=== PATIENT | male | born 1950 | race Caucasian/White ===

== ENCOUNTER → 2016-11-09 | Outpatient (CLI) | payer BC, MEDICARE ==
[~2016-11-09] MED LIST: ALBI30PE IM; ALBI30PE SC; ASPI-496 PO; ASPI-515 PO; ASPI-621 PO; ASPI325T4 PO; CLOP75TA PO; CLOP75TA22 PO; FENO145T32 PO; FURO-92 PO; FURO20TA3 PO; FURO40TA6 PO; GABA100C8 PO; GLIM1TAB PO; GLIP5TAB10 PO; INSU100I28 SQ-INSULIN; INSULIN; IPRA4AER INH; ISOS30TA19 PO; LEVO500T33 PO; LISI-170 PO; LISI40TA PO; LISI5TAB7 PO; MAGN400T7 PO; METF10002 PO; METO-93 PO; METO25TA35 PO; METO25TA91 PO; METO50TA82 PO; NITR0.4T SL; PANT40TA3 PO; PANT40TA5 PO; POTA10TA11 PO; POTA20TA14 PO; POTA20TA91 PO; SIMV40TA3 PO; SITA50TA PO; SPIR25TA PO; SPIR25TA3 PO; TEMA15CA6 PO
== END | disposition home or self-care (01) ==
LOC: CFH 14:18
PROVIDERS: ATTEND Nurse Practitioner
DX: I65.23 Occlusion and stenosis of bilateral carotid arteries (principal); Z95.1 Presence of aortocoronary bypass graft
CPT/HCPCS: 93880

== ENCOUNTER 2017-08-11 02:31 | Inpatient (IN) | payer BC, MEDICARE ==
[~2017-08-11] VITALS: Ht 172.7 cm; Wt 83.5 kg
[~2017-08-11 02:31] MED LIST changes: +ASPI325T17 PO; -ASPI325T4 PO; -CLOP75TA22 PO; +CLOP75TA52 PO; +GABA-826 PO; -GABA100C8 PO; -ISOS30TA19 PO; +ISOS30TA21 PO; -LEVO500T33 PO; +LEVO500T47 PO
[2017-08-11] MEDS ORDERED: methylPREDNISolone SOD SUCC 125 MG/2 ML ONE (03:27)
[2017-08-11] MEDS ORDERED: SODIUM CHLORIDE 0.9% 1,000ML IVBOLUS ONE (03:30)
[2017-08-11] MEDS ORDERED: ALBUTEROL SULFATE 2.5 MG/3 ML NPPB ONE (03:30)
[2017-08-11] MEDS ORDERED: methylPREDNISolone SOD SUCC 125 MG/2 ML IVP ONE (03:30)
[2017-08-11] MEDS ORDERED: ALBUTEROL/IPRATROPIUM 2.5MG/0.5MG, 3 ML ONE (03:45)
[2017-08-11 03:53] LABS: BASOPHILS # (AUTO) 0.02 x10^3/uL (0-0.1); BASOPHILS % (AUTO) 0 % (0-1); EOSINOPHILS # (AUTO) 0.07 x10^3/uL (0-0.4); EOSINOPHILS % (AUTO) 1 % (1-7); LYMPHOCYTES # (AUTO) 0.31 x10^3/uL (1-3.4); LYMPHOCYTES % (AUTO) 5 % (22-44); MD NO; MEAN CORPUSCULAR HEMOGLOBIN 28.4 pg (27.5-34.5); MEAN CORPUSCULAR HGB CONC 33.5 g/dL (33.2-36.2); MEAN CORPUSCULAR VOLUME 84.9 fL (81-97); MEAN PLATELET VOLUME 8.1 fL (7.4-10.4); MONOCYTES # (AUTO) 0.65 x10^3/uL (0.2-0.8); MONOCYTES % (AUTO) 10 % (2-9); NEUTROPHILS # (AUTO) 5.57 x10^3/uL (1.8-6.8); NEUTROPHILS % (AUTO) 84 % (42-75); PLATELET COUNT 188 x10^3/uL (130-400); RED BLOOD COUNT 4.88 x10^6/uL (4.38-5.82); RED CELL DISTRIBUTION WIDTH 14.9 % (9.4-14.8)
[2017-08-11 03:59] LABS: RAPID INFLUENZA A POSITIVE (Negative); RAPID INFLUENZA B Negative (Negative)
[2017-08-11 04:05] LABS: ALBUMIN 3.2 g/dL (3.4-5.0); ANION GAP 7 mmol/L (5-15); CALCIUM 8.2 mg/dL (8.5-10.1); CHLORIDE 108 mmol/L (98-107); CREATININE 1.31 mg/dL (0.7-1.3)
[2017-08-11] MEDS ORDERED: SODIUM CHLORIDE 0.9% 1,000 ML IV ONE (04:39)
[2017-08-11] MEDS ORDERED: ONDANSETRON 2MG/ML, 2ML ONE (04:44)
[2017-08-11] MEDS ORDERED: ASPIRIN 325 MG TABLET ONE (04:44)
[2017-08-11] MEDS ORDERED: ONDANSETRON 2MG/ML, 2ML IVPush PRN ×2 (05:00→08:30)
[2017-08-11] MEDS ORDERED: ASPIRIN 325 MG TABLET PO ONE (05:00)
[2017-08-11 05:34] LABS: TROPONIN I 0.599 ng/mL (0.000-0.045)
[2017-08-11 06:44] VITALS: BP 151/74
[2017-08-11] MEDS ORDERED: ALBUTEROL SULFATE 2.5 MG/3 ML NPPB PRN (08:30)
[2017-08-11] MEDS ORDERED: GLIMEPIRIDE 1 MG TABLET PO SCH (08:30)
[2017-08-11] MEDS ORDERED: hydrALAzine 20 MG/ML, 1ML IVPush PRN (08:30)
[2017-08-11] MEDS ORDERED: DOCUSATE 100 MG CAPSULE PO PRN (09:00)
[2017-08-11] MEDS ORDERED: FUROSEMIDE 40 MG TABLET PO SCH (09:00)
[2017-08-11] MEDS ORDERED: HEPARIN 5,000 UNITS/ML, 1ML IV ONE (09:00)
[2017-08-11] MEDS ORDERED: INSULIN DETEMIR 100 UNITS/ML, PEN SQ-INSULIN SCH (09:00)
[2017-08-11 09:15] VITALS: BP 119/69
[2017-08-11] MEDS: ALBUTEROL/IPRATROPIUM 2.5MG/0.5MG, 3 ML NPPB SCH ×3 (09:48→19:16)
[2017-08-11 10:04] LABS: TROPONIN I 0.908 ng/mL (0.000-0.045)
[2017-08-11] MEDS: ASPIRIN 81 MG TABLET EC PO SCH (10:12)
[2017-08-11] MEDS: MAGNESIUM OXIDE 400 MG TABLET PO SCH ×2 (10:12→21:17)
[2017-08-11] MEDS: METOPROLOL SUCCINATE 50 MG TAB.ER.24H PO SCH (10:12)
[2017-08-11] MEDS: OSELTAMIVIR 75 MG CAPSULE PO SCH ×2 (10:12→21:16)
[2017-08-11] MEDS: CLOPIDOGREL 75 MG TABLET PO SCH (10:13)
[2017-08-11] MEDS: LISINOPRIL 5 MG TABLET PO SCH ×2 (10:13→21:17)
[2017-08-11] MEDS: FENOFIBRATE 145 MG TABLET PO SCH (10:13)
[2017-08-11] MEDS: INSULIN ASPART 100 UNITS/ML, PEN SQ-INSULIN SCH ×3 (10:26→21:20)
[2017-08-11] MEDS: HEPARIN 25,000 UNITS/500ML PMX 500 ML IV PRN (10:29)
[2017-08-11] MEDS: ISOSORBIDE DINITRATE 30 MG TABLET PO SCH (12:02)
[2017-08-11 15:00] VITALS: BP 129/78
[2017-08-11] MEDS: AZITHROMYCIN 500 MG TABLET PO SCH (16:38)
[2017-08-11 16:42] LABS: HEMOGLOBIN A1C 7.9 % (4.2-6.3)
[2017-08-11] MEDS ORDERED: FUROSEMIDE 40 MG/4 ML IV SCH (17:00)
[2017-08-11] MEDS: HEPARIN 5,000 UNITS/ML, 1ML IV PRN (17:16)
[2017-08-11] MEDS ORDERED: ATORVASTATIN 40 MG TABLET PO SCH (18:00)
[2017-08-11 20:00] VITALS: BP 122/55
[2017-08-11] MEDS: TEMAZEPAM 15 MG CAPSULE PO PRN (21:17)
[2017-08-11] MEDS: INSULIN DETEMIR 100 UNITS/ML, PEN SQ-INSULIN SCH (21:19)
[2017-08-12 02:23] VITALS: BP 102/62
[2017-08-12] MEDS: METOPROLOL SUCCINATE 50 MG TAB.ER.24H PO SCH (06:29)
[2017-08-12 06:54] LABS: BASOPHILS % (AUTO) 0 % (0-1); EOSINOPHILS % (AUTO) 0 % (1-7); LYMPHOCYTES # (AUTO) 0.27 x10^3/uL (1-3.4); LYMPHOCYTES % (AUTO) 3 % (22-44); MD NO; MEAN CORPUSCULAR HEMOGLOBIN 27.8 pg (27.5-34.5); MEAN CORPUSCULAR HGB CONC 32.6 g/dL (33.2-36.2); MEAN CORPUSCULAR VOLUME 85.2 fL (81-97); MEAN PLATELET VOLUME 8.8 fL (7.4-10.4); MONOCYTES # (AUTO) 0.79 x10^3/uL (0.2-0.8); MONOCYTES % (AUTO) 9 % (2-9); NEUTROPHILS # (AUTO) 7.65 x10^3/uL (1.8-6.8); NEUTROPHILS % (AUTO) 88 % (42-75); PLATELET COUNT 195 x10^3/uL (130-400); RED BLOOD COUNT 4.72 x10^6/uL (4.38-5.82)
[2017-08-12 06:55] LABS: ANION GAP 7 mmol/L (5-15); CALCIUM 8.6 mg/dL (8.5-10.1); CHLORIDE 106 mmol/L (98-107); CHOLESTEROL, TOTAL 148 mg/dL (140-239); CREATININE 1.68 mg/dL (0.7-1.3); TRIGLYCERIDES 113 mg/dL (50-200); VLDL CHOLESTEROL 23 mg/dL (0-25)
[2017-08-12 06:57] LABS: CHOL/HDL RATIO 3.3; HDL CHOL % 30 % (26-37); HDL CHOLESTEROL (DIRECT) 45 mg/dL (40-60); LDL CHOLESTEROL,CALCULATED 80 mg/dL (54-169); LDL/HDL RATIO 1.8 (0.5-3.0)
[2017-08-12] MEDS: ALBUTEROL/IPRATROPIUM 2.5MG/0.5MG, 3 ML NPPB SCH ×4 (07:35→19:07)
[2017-08-12] MEDS: INSULIN DETEMIR 100 UNITS/ML, PEN SQ-INSULIN SCH ×2 (08:35→21:57)
[2017-08-12] MEDS: ACETAMINOPHEN 325 MG TABLET PO PRN (08:35)
[2017-08-12] MEDS: INSULIN ASPART 100 UNITS/ML, PEN SQ-INSULIN SCH ×4 (08:35→21:57)
[2017-08-12] MEDS: CLOPIDOGREL 75 MG TABLET PO SCH (08:36)
[2017-08-12] MEDS: AZITHROMYCIN 500 MG TABLET PO SCH (08:36)
[2017-08-12] MEDS: MAGNESIUM OXIDE 400 MG TABLET PO SCH ×2 (08:36→21:49)
[2017-08-12] MEDS: FENOFIBRATE 145 MG TABLET PO SCH (08:36)
[2017-08-12] MEDS: LISINOPRIL 5 MG TABLET PO SCH ×2 (08:36→21:49)
[2017-08-12] MEDS: ISOSORBIDE DINITRATE 30 MG TABLET PO SCH (08:36)
[2017-08-12] MEDS: ASPIRIN 81 MG TABLET EC PO SCH (08:36)
[2017-08-12 08:37] VITALS: BP 113/74
[2017-08-12] MEDS: OSELTAMIVIR 75 MG CAPSULE PO SCH ×2 (08:37→21:50)
[2017-08-12] MEDS: HEPARIN 25,000 UNITS/500ML PMX 500 ML IV PRN (11:34)
[2017-08-12 14:00] VITALS: BP 114/71
[2017-08-12] MEDS: FUROSEMIDE 20 MG/2 ML IV SCH (16:10)
[2017-08-12 20:43] VITALS: BP 119/58
[2017-08-12] MEDS: ATORVASTATIN 20 MG TABLET PO SCH (21:49)
[2017-08-13 01:56] VITALS: BP 106/55
[2017-08-13 05:22] LABS: BASOPHILS # (AUTO) 0.01 x10^3/uL (0-0.1); BASOPHILS % (AUTO) 0 % (0-1); EOSINOPHILS # (AUTO) 0.03 x10^3/uL (0-0.4); EOSINOPHILS % (AUTO) 0 % (1-7); LYMPHOCYTES % (AUTO) 6 % (22-44); MD NO; MEAN CORPUSCULAR HEMOGLOBIN 28.3 pg (27.5-34.5); MEAN CORPUSCULAR HGB CONC 33.3 g/dL (33.2-36.2); MEAN PLATELET VOLUME 8.7 fL (7.4-10.4); MONOCYTES # (AUTO) 0.56 x10^3/uL (0.2-0.8); MONOCYTES % (AUTO) 7 % (2-9); NEUTROPHILS # (AUTO) 7.35 x10^3/uL (1.8-6.8); NEUTROPHILS % (AUTO) 87 % (42-75); PLATELET COUNT 177 x10^3/uL (130-400); RED BLOOD COUNT 4.37 x10^6/uL (4.38-5.82)
[2017-08-13 05:29] LABS: ANION GAP 5 mmol/L (5-15); CALCIUM 8.5 mg/dL (8.5-10.1); CHLORIDE 105 mmol/L (98-107)
[2017-08-13 05:30] LABS: CREATININE 1.45 mg/dL (0.7-1.3)
[2017-08-13 05:52] LABS: TROPONIN I 0.742 ng/mL (0.000-0.045)
[2017-08-13] MEDS: METOPROLOL SUCCINATE 50 MG TAB.ER.24H PO SCH (06:32)
[2017-08-13] MEDS: HEPARIN 5,000 UNITS/ML, 1ML IV PRN (06:34)
[2017-08-13] MEDS: ALBUTEROL/IPRATROPIUM 2.5MG/0.5MG, 3 ML NPPB SCH ×4 (06:52→20:00)
[2017-08-13] MEDS: INSULIN ASPART 100 UNITS/ML, PEN SQ-INSULIN SCH ×4 (07:00→19:45)
[2017-08-13 07:33] VITALS: BP 136/72
[2017-08-13] MEDS ORDERED: POTASSIUM CHLORIDE 20 MEQ TAB.ER.PRT ONE (07:58)
[2017-08-13] MEDS ORDERED: ENOXAPARIN 30 MG/0.3 ML SQ SCH (08:00)
[2017-08-13] MEDS ORDERED: POTASSIUM CHLORIDE 20 MEQ TAB.ER.PRT PO ONE (08:00)
[2017-08-13] MEDS: OSELTAMIVIR 75 MG CAPSULE PO SCH ×2 (08:01→19:38)
[2017-08-13] MEDS: FUROSEMIDE 20 MG/2 ML IV SCH (08:01)
[2017-08-13] MEDS: AZITHROMYCIN 500 MG TABLET PO SCH (08:01)
[2017-08-13] MEDS: FENOFIBRATE 145 MG TABLET PO SCH (08:01)
[2017-08-13] MEDS: ACETAMINOPHEN 325 MG TABLET PO PRN ×3 (08:01→23:22)
[2017-08-13] MEDS: CLOPIDOGREL 75 MG TABLET PO SCH (08:01)
[2017-08-13] MEDS: LISINOPRIL 5 MG TABLET PO SCH ×2 (08:01→19:38)
[2017-08-13] MEDS: ASPIRIN 81 MG TABLET EC PO SCH (08:02)
[2017-08-13] MEDS: INSULIN DETEMIR 100 UNITS/ML, PEN SQ-INSULIN SCH ×2 (08:02→19:45)
[2017-08-13] MEDS: ISOSORBIDE DINITRATE 30 MG TABLET PO SCH (08:02)
[2017-08-13] MEDS: MAGNESIUM OXIDE 400 MG TABLET PO SCH ×2 (08:02→19:38)
[2017-08-13] MEDS: GLIMEPIRIDE 1 MG TABLET PO SCH (08:02)
[2017-08-13 14:15] VITALS: BP 121/65
[2017-08-13] MEDS: FUROSEMIDE 20 MG TABLET PO SCH (16:40)
[2017-08-13] MEDS: ATORVASTATIN 20 MG TABLET PO SCH (19:38)
[2017-08-13 20:23] VITALS: BP 123/91
[2017-08-13] MEDS: GUAIFENESIN/DM 200-20MG, 10ML UDC PO PRN (23:29)
[2017-08-13] MEDS: TEMAZEPAM 15 MG CAPSULE PO PRN (23:29)
[2017-08-14 01:45] VITALS: BP 112/67
[2017-08-14 04:50] LABS: BASOPHILS # (AUTO) 0.01 x10^3/uL (0-0.1); BASOPHILS % (AUTO) 0 % (0-1); EOSINOPHILS % (AUTO) 1 % (1-7); LYMPHOCYTES % (AUTO) 8 % (22-44); MD NO; MEAN CORPUSCULAR HEMOGLOBIN 28.5 pg (27.5-34.5); MEAN CORPUSCULAR HGB CONC 33.2 g/dL (33.2-36.2); MEAN CORPUSCULAR VOLUME 85.8 fL (81-97); MEAN PLATELET VOLUME 8.6 fL (7.4-10.4); MONOCYTES # (AUTO) 0.78 x10^3/uL (0.2-0.8); MONOCYTES % (AUTO) 10 % (2-9); NEUTROPHILS # (AUTO) 6.23 x10^3/uL (1.8-6.8); NEUTROPHILS % (AUTO) 81 % (42-75); PLATELET COUNT 189 x10^3/uL (130-400); RED BLOOD COUNT 4.44 x10^6/uL (4.38-5.82); RED CELL DISTRIBUTION WIDTH 14.9 % (9.4-14.8)
[2017-08-14 05:00] LABS: CHLORIDE 107 mmol/L (98-107)
[2017-08-14 05:09] LABS: ANION GAP 5 mmol/L (5-15); CALCIUM 8.7 mg/dL (8.5-10.1); CREATININE 1.45 mg/dL (0.7-1.3)
[2017-08-14] MEDS: METOPROLOL SUCCINATE 50 MG TAB.ER.24H PO SCH (06:13)
[2017-08-14 06:43] VITALS: BP 111/72
[2017-08-14] MEDS: INSULIN ASPART 100 UNITS/ML, PEN SQ-INSULIN SCH ×4 (07:00→21:41)
[2017-08-14] MEDS: ALBUTEROL/IPRATROPIUM 2.5MG/0.5MG, 3 ML NPPB SCH ×4 (07:32→18:56)
[2017-08-14] MEDS: FUROSEMIDE 20 MG TABLET PO SCH ×2 (08:36→17:19)
[2017-08-14] MEDS: GLIMEPIRIDE 1 MG TABLET PO SCH (08:36)
[2017-08-14] MEDS: ENOXAPARIN 40 MG/0.4 ML SQ SCH (08:36)
[2017-08-14] MEDS: CLOPIDOGREL 75 MG TABLET PO SCH (08:37)
[2017-08-14] MEDS: LISINOPRIL 5 MG TABLET PO SCH ×2 (08:37→21:32)
[2017-08-14] MEDS: MAGNESIUM OXIDE 400 MG TABLET PO SCH ×2 (08:37→21:32)
[2017-08-14] MEDS: ISOSORBIDE DINITRATE 30 MG TABLET PO SCH (08:37)
[2017-08-14] MEDS: OSELTAMIVIR 75 MG CAPSULE PO SCH ×2 (08:37→21:32)
[2017-08-14] MEDS: FENOFIBRATE 145 MG TABLET PO SCH (08:37)
[2017-08-14] MEDS: ASPIRIN 81 MG TABLET EC PO SCH (08:37)
[2017-08-14] MEDS: INSULIN DETEMIR 100 UNITS/ML, PEN SQ-INSULIN SCH ×2 (08:38→21:47)
[2017-08-14] MEDS: ACETAMINOPHEN 325 MG TABLET PO PRN ×2 (12:29→21:31)
[2017-08-14] MEDS: GUAIFENESIN/DM 200-20MG, 10ML UDC PO PRN ×2 (12:29→21:31)
[2017-08-14 14:32] VITALS: BP 108/65
[2017-08-14 21:28] VITALS: BP 146/73
[2017-08-14] MEDS: ATORVASTATIN 20 MG TABLET PO SCH (21:31)
[2017-08-14] MEDS: AZITHROMYCIN 500 MG TABLET PO SCH ×2 (21:33→21:50)
[2017-08-15 00:33] VITALS: BP 120/69
[2017-08-15] MEDS: TEMAZEPAM 15 MG CAPSULE PO PRN (02:13)
[2017-08-15] MEDS: METOPROLOL SUCCINATE 50 MG TAB.ER.24H PO SCH (05:15)
[2017-08-15 06:39] VITALS: BP 127/75
[2017-08-15] MEDS: ALBUTEROL/IPRATROPIUM 2.5MG/0.5MG, 3 ML NPPB SCH ×4 (06:59→20:30)
[2017-08-15] MEDS: INSULIN ASPART 100 UNITS/ML, PEN SQ-INSULIN SCH ×4 (07:00→21:03)
[2017-08-15] MEDS: ACETAMINOPHEN 325 MG TABLET PO PRN ×2 (08:02→20:50)
[2017-08-15] MEDS: ISOSORBIDE DINITRATE 30 MG TABLET PO SCH (09:00)
[2017-08-15] MEDS: GLIMEPIRIDE 1 MG TABLET PO SCH (09:30)
[2017-08-15] MEDS: MAGNESIUM OXIDE 400 MG TABLET PO SCH ×2 (09:30→20:51)
[2017-08-15] MEDS: LISINOPRIL 5 MG TABLET PO SCH ×2 (09:31→20:51)
[2017-08-15] MEDS: ENOXAPARIN 40 MG/0.4 ML SQ SCH (09:31)
[2017-08-15] MEDS: FUROSEMIDE 20 MG TABLET PO SCH ×2 (09:31→16:38)
[2017-08-15] MEDS: OSELTAMIVIR 75 MG CAPSULE PO SCH ×2 (09:31→20:51)
[2017-08-15] MEDS: FENOFIBRATE 145 MG TABLET PO SCH (09:31)
[2017-08-15] MEDS: ASPIRIN 81 MG TABLET EC PO SCH (09:31)
[2017-08-15] MEDS: CLOPIDOGREL 75 MG TABLET PO SCH (09:31)
[2017-08-15] MEDS: INSULIN DETEMIR 100 UNITS/ML, PEN SQ-INSULIN SCH (09:32)
[2017-08-15 13:53] VITALS: BP 121/97
[2017-08-15] MEDS: ATORVASTATIN 20 MG TABLET PO SCH (20:51)
[2017-08-15] MEDS: AZITHROMYCIN 500 MG TABLET PO SCH (20:51)
[2017-08-15 20:55] VITALS: BP 123/60
[2017-08-15] MEDS: GUAIFENESIN/DM 200-20MG, 10ML UDC PO PRN (21:03)
[2017-08-16 02:10] VITALS: BP 101/62
[2017-08-16 06:18] LABS: CHLORIDE 106 mmol/L (98-107)
[2017-08-16] MEDS: ALBUTEROL/IPRATROPIUM 2.5MG/0.5MG, 3 ML NPPB SCH ×4 (06:31→18:54)
[2017-08-16 06:32] LABS: ANION GAP 7 mmol/L (5-15); CALCIUM 9.2 mg/dL (8.5-10.1); CREATININE 1.29 mg/dL (0.7-1.3)
[2017-08-16 06:52] VITALS: BP 104/62
[2017-08-16] MEDS: INSULIN ASPART 100 UNITS/ML, PEN SQ-INSULIN SCH ×4 (07:00→21:29)
[2017-08-16] MEDS: INSULIN DETEMIR 100 UNITS/ML, PEN SQ-INSULIN SCH (07:30)
[2017-08-16] MEDS: FUROSEMIDE 20 MG TABLET PO SCH ×2 (07:48→17:15)
[2017-08-16] MEDS ORDERED: REGADENOSON 0.4 MG/5 ML SYRINGE ONE (10:54)
[2017-08-16] MEDS: ASPIRIN 81 MG TABLET EC PO SCH (12:14)
[2017-08-16] MEDS: LISINOPRIL 5 MG TABLET PO SCH ×2 (12:14→21:18)
[2017-08-16] MEDS: MAGNESIUM OXIDE 400 MG TABLET PO SCH ×2 (12:14→21:18)
[2017-08-16] MEDS: FENOFIBRATE 145 MG TABLET PO SCH (12:14)
[2017-08-16] MEDS: GLIMEPIRIDE 1 MG TABLET PO SCH (12:14)
[2017-08-16] MEDS: ISOSORBIDE DINITRATE 30 MG TABLET PO SCH (12:14)
[2017-08-16] MEDS: CLOPIDOGREL 75 MG TABLET PO SCH (12:15)
[2017-08-16] MEDS: METOPROLOL SUCCINATE 50 MG TAB.ER.24H PO SCH (12:15)
[2017-08-16] MEDS: OSELTAMIVIR 75 MG CAPSULE PO SCH (12:15)
[2017-08-16] MEDS: ENOXAPARIN 40 MG/0.4 ML SQ SCH (12:16)
[2017-08-16] MEDS: ACETAMINOPHEN 325 MG TABLET PO PRN ×2 (13:48→21:18)
[2017-08-16 14:43] VITALS: BP 114/66
[2017-08-16 19:08] VITALS: BP 114/64
[2017-08-16] MEDS: GUAIFENESIN/DM 200-20MG, 10ML UDC PO PRN (21:18)
[2017-08-16] MEDS: ATORVASTATIN 20 MG TABLET PO SCH (21:18)
[2017-08-17 00:03] VITALS: BP 110/68
[2017-08-17] MEDS: TEMAZEPAM 15 MG CAPSULE PO PRN (00:23)
[2017-08-17] MEDS: METOPROLOL SUCCINATE 50 MG TAB.ER.24H PO SCH (06:35)
[2017-08-17] MEDS: INSULIN ASPART 100 UNITS/ML, PEN SQ-INSULIN SCH ×4 (07:00→21:00)
[2017-08-17] MEDS: INSULIN DETEMIR 100 UNITS/ML, PEN SQ-INSULIN SCH (07:30)
[2017-08-17] MEDS: ENOXAPARIN 40 MG/0.4 ML SQ SCH (08:00)
[2017-08-17] MEDS: ALBUTEROL/IPRATROPIUM 2.5MG/0.5MG, 3 ML NPPB SCH ×4 (08:10→19:01)
[2017-08-17 08:28] VITALS: BP 119/75
[2017-08-17] MEDS: LISINOPRIL 5 MG TABLET PO SCH ×2 (08:31→20:40)
[2017-08-17] MEDS: ASPIRIN 81 MG TABLET EC PO SCH (08:31)
[2017-08-17] MEDS: MAGNESIUM OXIDE 400 MG TABLET PO SCH ×2 (08:32→20:40)
[2017-08-17] MEDS: GLIMEPIRIDE 1 MG TABLET PO SCH (08:32)
[2017-08-17] MEDS: ISOSORBIDE DINITRATE 30 MG TABLET PO SCH (08:32)
[2017-08-17] MEDS: FUROSEMIDE 20 MG TABLET PO SCH ×2 (08:33→17:51)
[2017-08-17] MEDS: FENOFIBRATE 145 MG TABLET PO SCH (08:33)
[2017-08-17] MEDS ORDERED: SODIUM CHLORIDE 0.9% 500 ML IV SCH (09:30)
[2017-08-17 09:46] LABS: BASOPHILS # (AUTO) 0.01 x10^3/uL (0-0.1); BASOPHILS % (AUTO) 0 % (0-1); EOSINOPHILS # (AUTO) 0.12 x10^3/uL (0-0.4); EOSINOPHILS % (AUTO) 2 % (1-7); LYMPHOCYTES # (AUTO) 0.68 x10^3/uL (1-3.4); LYMPHOCYTES % (AUTO) 8 % (22-44); MD NO; MEAN CORPUSCULAR HEMOGLOBIN 28.3 pg (27.5-34.5); MEAN CORPUSCULAR HGB CONC 32.9 g/dL (33.2-36.2); MEAN PLATELET VOLUME 8.9 fL (7.4-10.4); MONOCYTES % (AUTO) 7 % (2-9); NEUTROPHILS # (AUTO) 6.91 x10^3/uL (1.8-6.8); NEUTROPHILS % (AUTO) 83 % (42-75); PLATELET COUNT 264 x10^3/uL (130-400); RED BLOOD COUNT 4.68 x10^6/uL (4.38-5.82); RED CELL DISTRIBUTION WIDTH 14.5 % (9.4-14.8)
[2017-08-17 09:52] LABS: INTERNATIONAL NORMALIZED RATIO 0.99 (0.93-1.1); PROTHROMBIN TIME 10.3 Seconds (9.6-11.5)
[2017-08-17] MEDS: CLOPIDOGREL 75 MG TABLET PO SCH (14:13)
[2017-08-17] MEDS ORDERED: BIVALIRUDIN 250 MG ONE (14:17)
[2017-08-17] MEDS ORDERED: FENTANYL PF 100 MCG/2ML ONE (14:17)
[2017-08-17] MEDS ORDERED: MIDAZOLAM 1 MG/ML, 5ML ONE (14:17)
[2017-08-17] MEDS ORDERED: TICAGRELOR 90 MG TABLET ONE (14:17)
[2017-08-17] MEDS ORDERED: VERAPAMIL 2.5 MG/ML, 2ML ONE (14:17)
[2017-08-17] MEDS ORDERED: LIDOCAINE 2%, 20ML ONE (14:17)
[2017-08-17] MEDS ORDERED: HEPARIN 1,000 UNITS/ML, 10ML ONE (14:18)
[2017-08-17] MEDS ORDERED: SODIUM CHLORIDE 0.9% 1,000 ML IV SCH (15:07)
[2017-08-17 18:42] VITALS: BP 115/67
[2017-08-17] MEDS: ATORVASTATIN 20 MG TABLET PO SCH (20:40)
[2017-08-17] MEDS: GUAIFENESIN/DM 200-20MG, 10ML UDC PO PRN (21:00)
[2017-08-17] MEDS: ACETAMINOPHEN 325 MG TABLET PO PRN (21:00)
[2017-08-18 00:26] VITALS: BP 103/62
[2017-08-18] MEDS: ACETAMINOPHEN 325 MG TABLET PO PRN (01:43)
[2017-08-18] MEDS: METOPROLOL SUCCINATE 50 MG TAB.ER.24H PO SCH (05:57)
[2017-08-18] MEDS: ALBUTEROL/IPRATROPIUM 2.5MG/0.5MG, 3 ML NPPB SCH ×3 (06:54→14:05)
[2017-08-18] MEDS: INSULIN ASPART 100 UNITS/ML, PEN SQ-INSULIN SCH ×3 (07:00→16:00)
[2017-08-18] MEDS: ENOXAPARIN 40 MG/0.4 ML SQ SCH ×2 (08:00→08:38)
[2017-08-18 08:24] VITALS: BP 122/76
[2017-08-18] MEDS: FENOFIBRATE 145 MG TABLET PO SCH (08:38)
[2017-08-18] MEDS: FUROSEMIDE 20 MG TABLET PO SCH (08:38)
[2017-08-18] MEDS: LISINOPRIL 5 MG TABLET PO SCH (08:38)
[2017-08-18] MEDS: CLOPIDOGREL 75 MG TABLET PO SCH (08:39)
[2017-08-18] MEDS: MAGNESIUM OXIDE 400 MG TABLET PO SCH (08:39)
[2017-08-18] MEDS: ASPIRIN 81 MG TABLET EC PO SCH (08:39)
[2017-08-18] MEDS: ISOSORBIDE DINITRATE 30 MG TABLET PO SCH (08:39)
[2017-08-18] MEDS: GLIMEPIRIDE 1 MG TABLET PO SCH (08:39)
[2017-08-18] MEDS: INSULIN DETEMIR 100 UNITS/ML, PEN SQ-INSULIN SCH (08:39)
[2017-08-18 10:33] LABS: ANION GAP 6 mmol/L (5-15); CHLORIDE 102 mmol/L (98-107)
[2017-08-18 12:55] VITALS: BP 105/54
[2017-08-18] MEDS ORDERED: SPIR25TA PO (15:12)
[2017-08-18] MEDS ORDERED: IPRA3AMP NPPB (15:12)
[2017-08-18] MEDS ORDERED: ALBU2.5V NPPB (15:12)
[2017-08-18] MEDS ORDERED: PRED5TAB PO (15:12)
[2017-08-19] MEDS ORDERED: SPIRONOLACTONE 25 MG TABLET PO SCH (09:00)
== END 2017-08-18 17:24 | disposition home health service (06) | DRG 280 ==
LOC: ED 04:39 → EDIP 04:40 → ED 05:01 → 5SO 06:41
PROVIDERS: ADMIT Surgery; ATTEND Family Medicine
PROC: 4A023N7 Measurement of Cardiac Sampling and Pressure, Left Heart, Percutaneous Approach (ICD-10-PCS; principal; 2017-08-17)
PROC: B2111ZZ Fluoroscopy of Multiple Coronary Arteries using Low Osmolar Contrast (ICD-10-PCS; 2017-08-17)
PROC: B2121ZZ Fluoroscopy of Single Coronary Artery Bypass Graft using Low Osmolar Contrast (ICD-10-PCS; 2017-08-17)
PROC: B2181ZZ Fluoroscopy of Left Internal Mammary Bypass Graft using Low Osmolar Contrast (ICD-10-PCS; 2017-08-17)
DX: I21.4 Non-ST elevation (NSTEMI) myocardial infarction (principal); I50.43 Acute on chronic combined systolic (congestive) and diastolic (congestive) heart failure; E11.22 Type 2 diabetes mellitus with diabetic chronic kidney disease; E11.65 Type 2 diabetes mellitus with hyperglycemia; I25.719 Atherosclerosis of autologous vein coronary artery bypass graft(s) with unspecified angina pectoris; J44.1 Chronic obstructive pulmonary disease with (acute) exacerbation; I13.0 Hypertensive heart and chronic kidney disease with heart failure and stage 1 through stage 4 chronic kidney disease, or unspecified chronic kidney disease; J10.1 Influenza due to other identified influenza virus with other respiratory manifestations; D63.8 Anemia in other chronic diseases classified elsewhere; E78.1 Pure hyperglyceridemia; I25.10 Atherosclerotic heart disease of native coronary artery without angina pectoris; I25.5 Ischemic cardiomyopathy; I34.0 Nonrheumatic mitral (valve) insufficiency; I37.1 Nonrheumatic pulmonary valve insufficiency; N18.3 Chronic kidney disease, stage 3 (moderate); Z79.4 Long term (current) use of insulin; I25.2 Old myocardial infarction; Z82.49 Family history of ischemic heart disease and other diseases of the circulatory system; Z83.3 Family history of diabetes mellitus; Z87.891 Personal history of nicotine dependence; Z95.5 Presence of coronary angioplasty implant and graft; Z95.810 Presence of automatic (implantable) cardiac defibrillator; Z88.5 Allergy status to narcotic agent
CPT/HCPCS: 36415; 71010; 78452; 80048; 80061; 82040; 82947; 82962; 83036; 83735; 83880; 84100; 84484; 85025; 85520; 85610; 87400; 93005; 93017; 93459; 94640; 96361; 96374; 96375; 99156; C1769; C1894; C8929; J0583; J1644; J1650; J1815; J1940; J2250; J2405; J2785; J3010; J3490; J7613; J7620; A9502; C9898; J2930; J7030; J7040; J7512; Q9967

== ENCOUNTER → 2018-06-20 | Outpatient (CLI) | payer MEDICARE ==
[~2018-06-20] MED LIST changes: -ALBI30PE IM; -ALBI30PE SC; +ALBI30PE3 IM; +ALBI30PE3 SC; +ALBU2.5V NPPB; +IPRA3AMP30 NPPB; +PRED5TAB PO; -SPIR25TA3 PO; +SPIR25TA5 PO
== END | disposition home or self-care (01) ==
LOC: RAD 15:37
PROVIDERS: ATTEND Nurse Practitioner
DX: I51.7 Cardiomegaly (principal); I27.20 Pulmonary hypertension, unspecified; J44.9 Chronic obstructive pulmonary disease, unspecified; Z95.1 Presence of aortocoronary bypass graft
CPT/HCPCS: 71250

== ENCOUNTER 2018-07-16 16:18 | Inpatient (IN) | payer MEDICARE, OTHER ==
[~2018-07-16] VITALS: Ht 172.7 cm; Wt 87.0 kg
[~2018-07-16 16:18] MED LIST changes: -ASPI-621 PO; +ASPI81TA45 PO
[2018-07-16] MEDS ORDERED: SODIUM CHLORIDE FLUSH 10ML SYR IVF ONE (17:00)
[2018-07-16 17:35] LABS: BASOPHILS # (AUTO) 0.01 x10^3/uL (0-0.1); BASOPHILS % (AUTO) 0 % (0-1); EOSINOPHILS # (AUTO) 0.22 x10^3/uL (0-0.4); EOSINOPHILS % (AUTO) 3 % (1-7); LYMPHOCYTES % (AUTO) 7 % (22-44); MD NO; MEAN CORPUSCULAR HEMOGLOBIN 28.5 pg (27.5-34.5); MEAN CORPUSCULAR HGB CONC 32.9 g/dL (33.2-36.2); MEAN CORPUSCULAR VOLUME 86.4 fL (81-97); MEAN PLATELET VOLUME 9.5 fL (7.4-10.4); MONOCYTES # (AUTO) 0.57 x10^3/uL (0.2-0.8); MONOCYTES % (AUTO) 7 % (2-9); NEUTROPHILS # (AUTO) 6.48 x10^3/uL (1.8-6.8); NEUTROPHILS % (AUTO) 83 % (42-75); PLATELET COUNT 218 x10^3/uL (130-400); RED CELL DISTRIBUTION WIDTH 17.2 % (9.4-14.8)
[2018-07-16 17:48] LABS: ALANINE AMINOTRANSFERASE 21 U/L (12-78); ALBUMIN 3.3 g/dL (3.4-5.0); ANION GAP 6 mmol/L (5-15); CALCIUM 8.2 mg/dL (8.5-10.1); CHLORIDE 106 mmol/L (98-107)
[2018-07-16 17:52] LABS: ALKALINE PHOSPHATASE 120 U/L (45-117); BILIRUBIN,TOTAL 0.5 mg/dL (0.2-1.0); TOTAL PROTEIN 6.5 g/dL (6.4-8.2); TROPONIN I 0.031 ng/mL (0.000-0.045)
[2018-07-16] MEDS ORDERED: SODIUM CHLORIDE FLUSH 10ML SYR IVF PRN (18:30)
[2018-07-16 18:49] LABS: MICROSCOPIC AUTO
[2018-07-16 18:54] LABS: CULTURE INDICATED? NO
[2018-07-16 19:20] VITALS: BP 125/78
[2018-07-16] MEDS ORDERED: ONDANSETRON 4 MG TABLET PO PRN (20:30)
[2018-07-16] MEDS ORDERED: POLYETHYLENE GLYCOL 17 GM PACKET PO PRN (20:30)
[2018-07-16] MEDS ORDERED: GABAPENTIN 300 MG CAPSULE PO PRN (20:30)
[2018-07-16] MEDS ORDERED: LIDODERM 5% PATCH TD PRN (20:30)
[2018-07-16] MEDS ORDERED: ALBUTEROL SULFATE 2.5 MG/3 ML NPPB PRN (20:30)
[2018-07-16] MEDS ORDERED: PHARMACY MAY ADJ FOR RENAL FX MC PRN (20:30)
[2018-07-16] MEDS ORDERED: MAGNESIUM SULFATE PMX 4GM/100M 100 ML IVPB ONE (22:00)
[2018-07-16] MEDS ORDERED: MAGNESIUM SULFATE 4 GM in SODIUM CHLORIDE 0.9% 100 ML IV ONE (22:00)
[2018-07-16] MEDS: FUROSEMIDE 40 MG/4 ML IV SCH (23:09)
[2018-07-16] MEDS: INSULIN GLARGINE 100 UNITS/ML, PEN SQ-INSULIN SCH ×2 (23:09→23:13)
[2018-07-17 01:01] VITALS: BP 107/64
[2018-07-17 05:52] LABS: CHOL/HDL RATIO 5.2
[2018-07-17 07:12] VITALS: BP 122/66
[2018-07-17] MEDS ORDERED: POTASSIUM CHLORIDE 10 MEQ TABLET.ER PO SCH (08:00)
[2018-07-17] MEDS: INSULIN GLARGINE 100 UNITS/ML, PEN SQ-INSULIN SCH (08:12)
[2018-07-17] MEDS: FUROSEMIDE 40 MG/4 ML IV SCH (08:12)
[2018-07-17] MEDS ORDERED: ACETAMINOPHEN 325 MG TABLET PO PRN (08:30)
[2018-07-17] MEDS ORDERED: CARVEDILOL 3.125 MG TABLET PO SCH (08:30)
[2018-07-17 08:53] LABS: ANION GAP 8 mmol/L (5-15); CALCIUM 8.9 mg/dL (8.5-10.1); CHLORIDE 100 mmol/L (98-107)
[2018-07-17] MEDS ORDERED: FENOFIBRATE 145 MG TABLET PO SCH (09:00)
[2018-07-17] MEDS ORDERED: SPIRONOLACTONE 25 MG TABLET PO SCH (09:00)
[2018-07-17] MEDS ORDERED: CLOPIDOGREL 75 MG TABLET PO SCH (09:00)
[2018-07-17] MEDS: INSULIN LISPRO 100 UNITS/ML, PEN SQ-INSULIN SCH ×2 (09:30→12:39)
[2018-07-17] MEDS ORDERED: INSULIN LISPRO 100 UNITS/ML, PEN SQ-INSULIN SCH (11:00)
[2018-07-17 12:42] VITALS: BP 107/54
[2018-07-17] MEDS ORDERED: FUROSEMIDE 40 MG TABLET PO SCH (17:00)
== END 2018-07-17 13:52 | disposition home or self-care (01) | DRG 682 ==
LOC: ED 18:17 → EDIP 19:19 → 4EST 19:35
PROVIDERS: ADMIT Internal Medicine; ATTEND Internal Medicine
DX: N17.9 Acute kidney failure, unspecified (principal); I50.43 Acute on chronic combined systolic (congestive) and diastolic (congestive) heart failure; J96.20 Acute and chronic respiratory failure, unspecified whether with hypoxia or hypercapnia; I13.0 Hypertensive heart and chronic kidney disease with heart failure and stage 1 through stage 4 chronic kidney disease, or unspecified chronic kidney disease; E11.21 Type 2 diabetes mellitus with diabetic nephropathy; E11.43 Type 2 diabetes mellitus with diabetic autonomic (poly)neuropathy; G90.8 Other disorders of autonomic nervous system; I25.5 Ischemic cardiomyopathy; D63.8 Anemia in other chronic diseases classified elsewhere; E11.65 Type 2 diabetes mellitus with hyperglycemia; E78.5 Hyperlipidemia, unspecified; E83.41 Hypermagnesemia; G47.33 Obstructive sleep apnea (adult) (pediatric); I50.82 Biventricular heart failure; E11.22 Type 2 diabetes mellitus with diabetic chronic kidney disease; N18.3 Chronic kidney disease, stage 3 (moderate); I25.2 Old myocardial infarction; I25.10 Atherosclerotic heart disease of native coronary artery without angina pectoris; I44.0 Atrioventricular block, first degree; I44.7 Left bundle-branch block, unspecified; J44.9 Chronic obstructive pulmonary disease, unspecified; R32 Unspecified urinary incontinence; Z83.3 Family history of diabetes mellitus; Z87.891 Personal history of nicotine dependence; Z95.0 Presence of cardiac pacemaker; Z95.1 Presence of aortocoronary bypass graft; Z95.5 Presence of coronary angioplasty implant and graft; Z88.6 Allergy status to analgesic agent; Z88.1 Allergy status to other antibiotic agents
CPT/HCPCS: 36415; 70450; 71045; 80048; 80053; 80061; 81001; 82962; 83735; 83880; 84484; 85025; 93005; 94640; 99285; C8929; G0378; J1940; J7613; Q9957; J1815; J3475

== ENCOUNTER → 2019-08-25 | Outpatient (CLI) | payer MEDICARE ==
[~2019-08-25] MED LIST changes: -MAGN400T7 PO; +MAGN400T9 PO; -NITR0.4T SL; +NITR0.4T41 SL
== END | disposition home or self-care (01) ==
LOC: CFH 08:11
PROVIDERS: ATTEND Nurse Practitioner
DX: J44.9 Chronic obstructive pulmonary disease, unspecified (principal); I25.10 Atherosclerotic heart disease of native coronary artery without angina pectoris; E78.5 Hyperlipidemia, unspecified; E11.22 Type 2 diabetes mellitus with diabetic chronic kidney disease; E11.42 Type 2 diabetes mellitus with diabetic polyneuropathy; I13.0 Hypertensive heart and chronic kidney disease with heart failure and stage 1 through stage 4 chronic kidney disease, or unspecified chronic kidney disease; N18.2 Chronic kidney disease, stage 2 (mild); I50.22 Chronic systolic (congestive) heart failure; I42.9 Cardiomyopathy, unspecified; G47.33 Obstructive sleep apnea (adult) (pediatric); Z68.28 Body mass index [BMI] 28.0-28.9, adult; Z88.5 Allergy status to narcotic agent
CPT/HCPCS: 71250